=== PATIENT | male | born 1985 ===

== ENCOUNTER → 2018-02-21 | Outpatient (CLI) | payer OTHER | END | disposition home or self-care (01) | LOC: RAD 12:52 | DX: M54.5 Low back pain (principal) ==

== ENCOUNTER 2018-03-21 12:55 | Outpatient (CLI) | payer OTHER | END 2018-03-21 15:00 | disposition home or self-care (01) | LOC: MRI 12:55 | DX: M54.5 Low back pain (principal); M62.830 Muscle spasm of back; M47.896 Other spondylosis, lumbar region; M41.57 Other secondary scoliosis, lumbosacral region | CPT/HCPCS: 72148 ==

== ENCOUNTER 2021-06-23 11:30 | Outpatient (CLI) | payer OTHER | END 2021-06-23 14:19 | disposition home or self-care (01) | LOC: SONOGRAMA 11:30 | DX: N50.812 Left testicular pain (principal); I86.1 Scrotal varices; Z87.891 Personal history of nicotine dependence ==